=== PATIENT | male | born 1990 | race Caucasian/White ===

== ENCOUNTER 2017-09-17 10:22 | Emergency (ER) | payer OTHER ==
--- NOTE | 2017-09-17 10:32 | PDOC ---
History of Present Illness - General Stated Complaint: R HAND INJURY Time Seen by Provider: 09/17/17 10:29 - History of Present Illness Initial Comments: 09/17/17 11:00 Chief complaint: Right hand injury History of present illness: Patient was ice skating yesterday, fell and injured his right hand. Swelling of the dorsum of the hand. Denies pain at the site. Review of systems: Patient has an old tendon injury of the right fourth finger with inability to fully flex and extend the fourth finger. Surgery has been recommended, the patient has so far declined. This injury was not aggravated in the fall. He has no other complaint of distal numbness, tingling, or limited motion. Past medical history: Healthy female, no active medical problems other than tendon injury as noted above Social/family history reviewed and noncontributory Physical exam: Alert and oriented well-developed well-nourished no acute distress cheerful and cooperative Afebrile, vital signs normal No trauma other than to the right hand. There is swelling over the dorsum of the right hand, primarily mid shaft metacarpals 3 and 4. No obvious deformity. No erythema or heat. The wrist is normal, without point tenderness deformity or swelling. Pulses are full. No distal sensory deficits. The fourth finger has ecchymoses over the distal phalangeal joint, and there is inability to flex or fully extend the distal phalanx as noted above. This is previous injury that has not changed since the fall Impression: No sign of fracture of the wrist. Swelling but no pain or tenderness over the dorsum of the hand. Probable soft tissue injury. Rule out fracture. Plan: X-ray and further orthopedic management depending on results. Past History - Past Medical History Allergies/Adverse Reactions: Allergies Allergy/AdvReac Type Severity Reaction Status Date / Time No Known Allergies Allergy Unverified 09/17/17 11:13 Home Medications: Ambulatory Orders NK [No Known Home Medication] 09/17/17 - Suicide/Smoking/Psychosocial Hx Smoking Status: No Smoking History: Never smoked Number of Cigarettes Smoked Daily: 0 Hx Alcohol Use: Yes Drug/Substance Use Hx: No Substance Use Type: Alcohol Medical Decision Making - Medical Decision Making 09/17/17 12:31 X-ray: Negative for fracture Javier wrap applied. Rest ice and elevation. Follow-up with orthopedist as directed. Discussed the old tendon injury and recommended repair, patient will consider. Dilatory and in no pain upon discharge to follow-up as recommended *DC/Admit/Observation/Transfer Diagnosis at time of Disposition: Contusion of right hand, initial encounter - Discharge Dispostion Disposition: HOME Condition at time of disposition: Stable Admit: No - Referrals Referrals: Vu Roe MD [Staff Physician] - 1 week - Patient Instructions Printed Discharge Instructions: How to Apply an Javier Wrap Additional Instructions: Rest, ice, elevate, Javier wrap as directed. See hand specialist if you have pain, or any dysfunction with a hand or fingers. - Post Discharge Activity
[2017-09-17 11:23] VITALS: BP 126/68; PULSE 108; TEMP 98.5; BMI 28.5
== END 2017-09-17 11:57 | disposition home or self-care (01) ==
LOC: FER 10:22
DX: S60.221A Contusion of right hand, initial encounter (principal); W18.39XA Other fall on same level, initial encounter; Y93.21 Activity, ice skating; Y92.330 Ice skating rink (indoor) (outdoor) as the place of occurrence of the external cause
CPT/HCPCS: 73130-TC-RT; 99281-25

== ENCOUNTER 2017-12-01 11:30 | Emergency (ER) | payer OTHER ==
[2017-12-01 11:41] VITALS: BP 152/111; PULSE 89; TEMP 98.2; BMI 27.1
--- NOTE | 2017-12-01 12:08 | PDOC ---
History of Present Illness - General Chief Complaint: Respiratory Stated Complaint: BRONCHITIS Time Seen by Provider: 12/01/17 12:08 History Source: Patient Exam Limitations: No Limitations - History of Present Illness Initial Comments: 12/01/17 13:05 Mr Adams is an otherwise healthy 27-year-old male who presents emergency department with a complaint of upper respiratory infection. Patient states he's been ill for approximately one week. Did not follow up with his primary care physician because his symptoms are bearable. Last night he was unable to sleep due to shortness of breath. He's noticed wheezing, a productive cough. He's also noticed sinus pressure. He denies fevers or chills. He denies bodyaches. He denies a prior history of asthma. He by his mother's asthma pump, has been using this with some improvement of his symptoms Past medical history: Denies Past surgical history: Denies Medication: Denies Patient denies tobacco use, does use marijuana on occasion (last use yesterday) (, denies alcohol abuse. GENERAL/CONSTITUTIONAL: Yes: loss of appetite No: fever, chills, weakness HEAD, EYES, EARS, NOSE AND THROAT: No: change in vision, ear pain, discharge, sore throat, throat swelling. CARDIOVASCULAR: No: chest pain, lightheadedness, palpitations, syncope RESPIRATORY: Yes: cough, wheezing, shortness of breath No: hemoptysis, stridor. GASTROINTESTINAL: No: nausea, vomiting, diarrhea, abdominal cramping, rectal bleeding, constipation. GENITOURINARY: No: dysuria, hematuria, frequency, urgency, flank pain. MUSCULOSKELETAL: No: back pain, neck pain, joint pain, muscle swelling or pain SKIN AND BREASTS: No: lesions, pallor, rash or easy bruising. NEUROLOGIC: No: headache, vertigo, paresthesias, weakness ENDOCRINE: No: unexplained weight gain or loss HEMATOLOGIC/LYMPHATIC: No: anemia, easy bleeding, swelling nodes. GENERAL: The patient is in no acute distress. HEAD: Normal EYES: PERRLA, EOMI, sclera anicteric, conjunctiva clear. ENT: Ears normal, nares patent, oropharynx clear without exudates. Moist mucous membranes. NECK: Normal range of motion, supple LUNGS: Expiratory wheezing noted throughout all lung marcano HEART:Regular rate and rhythm, normal S1 and S2 without murmur, rub or gallop. ABDOMEN: Soft, nontender, normoactive bowel sounds. No guarding, no rebound. No masses palpable. EXTREMITIES: Normal range of motion, no edema. No clubbing or cyanosis. No erythema, or tenderness. NEUROLOGICAL: Cranial nerves II through XII grossly intact. Normal speech. No focal neurological deficits. MUSCULOSKELETAL: Back non-tender to palpation, no CVA tenderness SKIN: Warm, Dry, normal turgor, no rashes or lesions noted. Past History - Past Medical History Allergies/Adverse Reactions: Allergies Allergy/AdvReac Type Severity Reaction Status Date / Time No Known Allergies Allergy Verified 12/01/17 11:34 Home Medications: Ambulatory Orders Albuterol 0.083% Nebulizer Margie [Ventolin 0.083% Nebulizer Soln -] 1 neb NEB Q6H #30 vial 12/01/17 Albuterol Sulfate Inhaler - [Ventolin HFA Inhaler -] 1 - 2 inh PO QID PRN #1 inhaler 12/01/17 Azithromycin [Zithromax 250mg Tablets -] 250 mg PO UTDICT #6 tab 12/01/17 Benzonatate [Tessalon Pearls -] 100 mg PO TID PRN #21 capsule 12/01/17 Guaifenesin [Mucinex -] 600 mg PO BID #14 tablet.er 12/01/17 Nebulizer and Compressor [[place] Choice Nebulizer] 1 each MC Q6H PRN #1 each 09/08 predniSONE [Deltasone -] 60 mg PO DAILY #12 tablet 12/01/17 COPD: No Other medical history: ANABOLIC STEROID USE - Suicide/Smoking/Psychosocial Hx Smoking Status: No Smoking History: Never smoked Number of Cigarettes Smoked Daily: 0 Hx Alcohol Use: Yes (OCCASIONAL) Drug/Substance Use Hx: No Substance Use Type: None *Physical Exam - Vital Signs Last Vital Signs Temp Pulse Resp BP Pulse Ox 98.2 F 89 16 152/111 97 12/01/17 11:32 12/01/17 11:32 12/01/17 11:32 12/01/17 11:32 12/01/17 11:32 Medical Decision Making - Medical Decision Making 12/01/17 13:08 Differential diagnosis includes but is not limited to: Pneumonia, bronchitis, Will do : CXR Albuterol nebs Prednisone Consider abx 12/01/17 13:16 This x-rays read as hyperaeration, no infiltrates seen. Reassessed Lungs are clear No wheezing Clinical impression: Acute bronchitis, initial presentation Acute asthma exacerbation, initial presentation *DC/Admit/Observation/Transfer Diagnosis at time of Disposition: Bronchitis Asthma exacerbation Qualifiers: Asthma severity: mild Asthma persistence: intermittent Qualified Code(s): J45.21 - Mild intermittent asthma with (acute) exacerbation - Discharge Dispostion Disposition: HOME Condition at time of disposition: Stable Admit: No - Prescriptions Prescriptions: Albuterol 0.083% Nebulizer Margie [Ventolin 0.083% Nebulizer Soln -] 1 neb NEB Q6H #30 vial Albuterol Sulfate Inhaler - [Ventolin HFA Inhaler -] 1 - 2 inh PO QID PRN #1 inhaler PRN Reason: Wheezing Azithromycin [Zithromax 250mg Tablets -] 250 mg PO UTDICT #6 tab Benzonatate [Tessalon Pearls -] 100 mg PO TID PRN #21 capsule PRN Reason: Cough Guaifenesin [Mucinex -] 600 mg PO BID #14 tablet.er Nebulizer and Compressor [[place] Choice Nebulizer] 1 each MC Q6H PRN #1 each PRN Reason: Wheezing predniSONE [Deltasone -] 60 mg PO DAILY #12 tablet - Referrals Referrals: Aquiles Coelho MD [Primary Care Provider] - - Patient Instructions Printed Discharge Instructions: DI for Asthma -- Adult, DI for Acute Bronchitis Additional Instructions: Today you were seen for an exacerbation of your asthma. After given a nebulizer treatment your symptoms improve. If you need a refill of your asthma medications and I havent provided you with one please let me know so I can have it waiting for you at your pharmacy. Use your at home medications as originally directed by your primary care provider. Follow up with your primary cares office, or the referral weve provided you within 24 hours to inform them of todays visit and to see if they would like to/ need to see you. If you develop any new or worsening symptoms, or any fevers that cant be controlled with Tylenol or Motrin go directly to the emergency room. - Post Discharge Activity Forms/Work/School Notes: Back to Work
[2017-12-01] MEDS ORDERED: ALBUTEROL SO4 2.5/IPRATROPIUM 0.5 INH SOL 3 ML VIAL.NEB. NEB ONE ×2 (12:15→13:01)
[2017-12-01] MEDS ORDERED: predniSONE 20 MG TABLET (UD) PO ONE (12:15)
[2017-12-01] MEDS ORDERED: predniSONE 20 MG TABLET (UD) ONE (13:01)
== END 2017-12-01 13:45 | disposition home or self-care (01) ==
LOC: FER 11:30
PROC: 3E0F7GC Introduction of Other Therapeutic Substance into Respiratory Tract, Via Natural or Artificial Opening (ICD-10-PCS; principal; 2017-12-01)
DX: J40 Bronchitis, not specified as acute or chronic (principal); J45.21 Mild intermittent asthma with (acute) exacerbation
CPT/HCPCS: 71046-TC-FY; 99281-25; J7620